=== PATIENT | male | born 1985 | race Caucasian/White ===

== ENCOUNTER 2019-03-16 11:34 | Emergency (ER) | payer OTHER ==
[~2019-03-16] VITALS: Ht 182.9 cm; Wt 81.6 kg
[~2019-03-16 11:34] MED LIST: AMANTADINE HCL100 M1 GT; DANTRIUM25 MG GT; FAMOTIDINE20 MG GT; KEPPRA500 MG GT; LABETALOL HYDR300 MG GT; RESTORIL15 MG GT; RITALIN10 MG GT; SOD1 GT; WARFARIN GT
[2019-03-16 11:38] VITALS: Ht 182.9 cm; Wt 81.6 kg
[2019-03-16] MEDS ORDERED: AMANTADINE HCL100 M1 GT (11:58)
[2019-03-16] MEDS ORDERED: DANTRIUM25 MG GT (11:58)
[2019-03-16] MEDS ORDERED: KEPPRA1000 M1 GT (11:59)
[2019-03-16] MEDS ORDERED: PEPCID20 MG GT (11:59)
[2019-03-16] MEDS ORDERED: LABETALOL HYDR300 MG GT (12:00)
[2019-03-16] MEDS ORDERED: SODIUM CHLORIDE1 G2 GT (12:00)
[2019-03-16] MEDS ORDERED: COUMADIN2.5 MG PO (12:00)
[2019-03-16] MEDS ORDERED: COUMADIN2.5 MG GT (12:01)
[2019-03-16] MEDS ORDERED: COUMADIN1 MG GT (12:03)
[2019-03-16] MEDS ORDERED: RIT5 GT (12:04)
[2019-03-16] MEDS ORDERED: RITALIN10 MG GT (12:04)
[2019-03-16 12:26] LABS: BASOPHIL % 0.5 % (0-2); PLATELET COUNT 224 x10^3mcL (130-400); RED CELL DISTRIBUTION WIDTH 12.6 % (11.5-14.5)
[2019-03-16 12:31] LABS: CALCIUM 8.8 mg/dL (8.5-10.1); CARBON DIOXIDE 26.4 mmol/L (21-32); CHLORIDE SERUM 105 mmol/L (98-107); CREATININE SERUM 0.6 mg/dL (0.7-1.3); GFR1 > 60 mL/min; GLUCOSE SERUM 90 mg/dL (74-106); POTASSIUM SERUM 4.1 mmol/L (3.5-5.1); SODIUM SERUM 140 mmol/L (136-145)
[2019-03-16 12:35] LABS: microscopic required? YES; urine erythrocyte NEGATIVE (NEGATIVE)
[2019-03-16 12:44] LABS: ALBUMIN 3.4 g/dL (3.4-5.0); ALKALINE PHOSPHATASE 112 U/L (46-116); ALT/SGPT 33 U/L (16-63); AST/SGOT 14 U/L (15-37); BILIRUBIN TOTAL 0.69 mg/dL (0.20-1.00); FREE T4 1.06 ng/dL (0.76-1.46); LIPASE 143 IU/L (73-393); TOTAL PROTEIN, SERUM 7.4 g/dL (6.4-8.2)
[2019-03-16 12:51] LABS: AMPHETAMINE QUAL UR NONE DETECTED (See below)
[2019-03-16 16:58] VITALS: BP 110/83
== END 2019-03-16 16:55 | disposition short-term general hospital (02) ==
LOC: ED 11:34
PROVIDERS: Emergency Medicine
DX: G40.909 Epilepsy, unspecified, not intractable, without status epilepticus (principal); N39.0 Urinary tract infection, site not specified; R79.1 Abnormal coagulation profile; Z88.0 Allergy status to penicillin; Z88.1 Allergy status to other antibiotic agents
CPT/HCPCS: 84439; 87804; J1956; Q0092